=== PATIENT | female | born 1990 | race Caucasian/White ===

== ENCOUNTER 2018-07-20 11:15 | Emergency (ER) | payer OTHER ==
[2018-07-20] MEDS ORDERED: NS 1,000 ML IV ONE (12:01)
--- NOTE | 2018-07-20 12:01 | EDPHY ---
H & P Stated Complaint: heart palpitations described as "fluttering in chest" midsternal Source: Patient, EMS Exam Limitations: No limitations - Personal History LMP (Females 10-55): IUD In Place Current Tetanus/Diphtheria Vaccine: Yes Current Tetanus Diphtheria and Acellular Pertussis (TDAP): Yes - Medical/Surgical History Hx Asthma: No Hx Chronic Respiratory Disease: No Hx Diabetes: No Hx Cardiac Disease: No Hx Renal Disease: No Hx Cirrhosis: No Hx Alcoholism: No Hx HIV/AIDS: No Hx Splenectomy or Spleen Trauma: No Other PMH: anxiety, depression - Social History Smoking Status: Never smoked Time Seen by Provider: 07/20/18 11:55 HPI/ROS: HPI: This is a 28-year-old female who presents with Chief Complaint: Heart palpitations Location: Heart Quality: Palpitations Duration: 1 min Signs and Symptoms: no shortness of breath at rest, no shortness of breath on exertion, no cough, no chest pain, no lower extremity edema, no wheezing, no orthopnea, no paroxysmal nocturnal dyspnea, no fever, no injury/trauma, no hemoptysis, no carpal pedal spasms, Timing: Acute, resolved Severity: Moderate Context: Patient arrives via EMS with complaints of heart palpitations. She was sitting at work at her desk when all the sudden she felt left-sided heart palpitations that lasted approximately 1 min accompanied by when she stood up tunnel vision but she was still able to go over to her coworkers desk and relate her symptoms. She reports that she has had never had palpitations in the past. Last her during her OBGYN exam she was told she may have a murmur. She did drink beers last night. She has had 1 glass of water this morning. She denies fever, chest pain, lower extremity edema. No recent foreign travel. Has an IUD. Does not have regular menses. Patient denies any illegal drug use, ayvi-jco-okfjelh cold medication use, caffeine use. Modifying Factors: None Comment: ROS: A comprehensive 10 system review of systems is otherwise negative aside from elements mentioned in the history of present illness. MEDICAL/SURGICAL/SOCIAL HISTORY: Medical history: Generally healthy. Does not take any regular medications. Surgical history: Denies Social history: Employed. Nonsmoker. Drinks alcohol socially. CONSTITUTIONAL: Well-developed, well-nourished young adult white female, awake and alert, no obvious distress HEENT: Atraumatic and normocephalic, PERRL, EOMI. Nares patent; no rhinorrhea; no nasal mucosal edema. Tympanic membranes clear. Oropharynx clear, no exudate and moist pink mucosa. Airway patent. No lymphadenopathy. No meningismus. Cardiovascular: Normal S1/S2, regular rate, regular rhythm, without murmur rub or gallop. No carotid bruits. PULMONARY/CHEST: Symmetrical and nontender. Clear to auscultation bilaterally. Good air movement. No accessory muscle usage. ABDOMEN: Soft, nondistended, nontender, no rebound, no guarding, no peritoneal signs, no masses or organomegaly. No CVAT. EXTREMITIES: 2/2 pulses, strength 5/5, no deformities, no clubbing, no cyanosis or edema. Negative Homans sign. NEUROLOGICAL: no focal neuro deficits. GCS 15. SKIN: Warm and dry, no erythema. no rash. Good capillary refill. (Izabel Louis) Constitutional: Initial Vital Signs Temperature (C) 36.8 C 07/20/18 11:31 Heart Rate 155 H 07/20/18 11:31 Respiratory Rate 18 07/20/18 11:31 Blood Pressure 154/95 H 07/20/18 11:31 O2 Sat (%) 97 07/20/18 11:31 O2 Delivery Mode Room Air Allergies/Adverse Reactions: No Known Allergies Allergy (Unverified 07/20/18 11:33) Home Medications: Medication Instructions Recorded NK [No Known Home Meds] 07/20/18 Medical Decision Making - Diagnostics EKG Interpretation: EKG interpreted by me shows sinus tach at a rate of 100. No significant ST elevation or depression. No arrhythmia. (Zac Wiseman) ED Course/Re-evaluation: Vital signs reviewed and initial heart rate 155. Placed on architectural coating finisher and heart rate 100. EKG shows normal sinus rhythm with rate of 97 beats per minute. No acute ischemic changes, no arrhythmias, no heart block. IV access, laboratory studies Given 1 L normal saline 1425: Labs reviewed. No signs of leukocytosis/anemia/platelet dysfunction/BIANKA/ electrolyte imbalance//thyroid disease. 1428: D-dimer 4.41. CTA chest ordered to evaluate for pulmonary embolism. Patient remains stable on the heart monitor with a heart rate of 95 and O2 sat of 98% on room air 1540: By Radiology that CT chest is negative for pulmonary embolism. Does show a small calcified granuloma in the right lower lobe that is likely benign. Discussed with patient to increase fluid intake, cut out caffeine altogether, and follow up with Cardiology for Holter monitor candidacy This patient was seen under the supervision of my secondary supervising physician. I evaluated care for this patient with attending. Discussed this patient with Dr. Wiseman. (Izabel Louis) I did not see this patient while she was in the emergency department. However her care was discussed with the PA while the patient was in the department. I agree with treatment plan and management (Zac Wiseman) Differential Diagnosis: Chest pain including but not limited to myocardial ischemia, pulmonary embolus, chest wall pain, pleural inflammation and pulmonary infectious causes. (Izabel Louis) - Data Points Laboratory Results: Laboratory Results 07/20/18 11:30 07/20/18 11:30 Medications Given: Discontinued Medications Sodium Chloride (Ns) 1,000 mls @ 0 mls/hr IV EDNOW ONE; Wide Open PRN Reason: Protocol Stop: 07/20/18 12:02 Last Admin: 07/20/18 13:12 Dose: Not Given Departure - Departure Disposition: Home, Routine, Self-Care Clinical Impression: Heart palpitations, Lung granuloma Condition: Good Instructions: Heart Palpitations (ED) Additional Instructions: Please refrain from drinking caffeine or using any trij-jrx-vnuydel cold medications. Consume a minimum of 8-10 glasses of water or electrolyte fluid replacement drinks that include Gatorade, Powerade, Pedialyte. Please follow-up with Cardiology to discuss candidacy for Holter monitor. Referrals: MACK URIARTE [Primary Care Provider] - As per Instructions Sheng Anderson MD [Medical Doctor] - As per Instructions
[2018-07-20 12:08] LABS: PLATELET COUNT 210 10^3/uL (150-400)
[2018-07-20] MEDS ORDERED: IOHEXOL 350mgI/ML (OMNIPAQUE) 150 ML BTL IV ONE (14:36)
--- NOTE | 2018-07-20 15:29 | CPEKG ---
Test Reason : OPEN Blood Pressure : / mmHG Vent. Rate : 097 BPM Atrial Rate : 101 BPM P-R Int : 140 ms QRS Dur : 093 ms QT Int : 343 ms P-R-T Axes : 071 019 024 degrees QTc Int : 436 ms Sinus rhythm Confirmed by Zac Wiseman ([id number]) on 07/20/2018 3:28:50 PM Referred By: PHYSICIAN ED Confirmed By:Zac Wiseman
[2018-07-20 15:53] VITALS: BP 152/98
== END 2018-07-20 15:53 | disposition home or self-care (01) ==
LOC: EDUNIT#
DX: R00.2 Palpitations (principal); J84.10 Pulmonary fibrosis, unspecified; E86.9 Volume depletion, unspecified; F41.8 Other specified anxiety disorders
CPT/HCPCS: Q9967

== ENCOUNTER → 2018-08-27 | Outpatient (CLI) | payer OTHER | LOC: CIMAGING 08:09 | PROVIDERS: ATTEND Nurse Practitioner Family | DX: R10.11 Right upper quadrant pain (principal); R11.0 Nausea | CPT/HCPCS: 76705-PO ==